=== PATIENT | male | born 1980 | race Caucasian/White ===

== ENCOUNTER 2022-12-05 06:06 | Inpatient (IN) ==
[2022-11-28 12:31] LABS: Basophils % 0.7 % (0.0-0.8); Eosinophils # 0.2 10*3/uL (0.0-0.87); Eosinophils % 3.7 % (0.00-10.9); Hematocrit 39.7 VOL% (42.0-52.0); Hemoglobin 13.7 GM/DL (14.0-18.0); Immature Granulocytes % 0.4 %; Immature Granulocytes Absolute 0.02 #; Lymphocytes # 0.4 10*3/uL (1.4-4.0); Lymphocytes % 9.1 % (21.2-54.2); Mean Corpuscular HGB Conc 34.5 GM/DL (32-36); Mean Corpuscular Volume 91.3 FL (87-102); Mean Platelet Volume 12.5 FL (9.6-12.0); Monocytes # 0.4 10*3/uL (0.11-0.8); Monocytes % 8.5 % (1.7-12.7); Neutrophils % 77.6 % (38.7-73.9); Platelet Count 183 T/CUMM (130-400); Red Blood Count 4.35 MC/CUMM (3.8-5.5); Red Cell Distribution Width 13.7 % (9.3-17.3); White Blood Count 4.6 T/CUMM (4-12)
[2022-11-28 12:41] LABS: Calcium 9.1 MG/DL (8.5-10.1); Osmolality,Calculated 279.3 MOS/KG (273-304); Potassium 4.1 MMOL/L (3.5-5.1)
[~2022-12-05 06:06] MED LIST: LACTATED RINGERS 1,000 ML IV SCH
[2022-12-05] MEDS ORDERED: INDOCYANINE GREEN 25 MG VIAL IV ONE (06:11)
[2022-12-05] MEDS ORDERED: TISSUE ADHESIVE 1 EACH APPLICATOR TOP ONE (06:11)
[2022-12-05] MEDS ORDERED: buprenorphine HCL 0.3 MG/ML VIAL ONE (06:27)
[2022-12-05] MEDS ORDERED: ACETAMINOPHEN 500 MG TABLET PO ONE (06:29)
[2022-12-05] MEDS ORDERED: GABAPENTIN 400 MG CAPSULE PO ONE (06:29)
[2022-12-05] MEDS ORDERED: DIAZEPAM 5 MG TABLET PO ONE (06:29)
[2022-12-05] MEDS ORDERED: FAMOTIDINE 20 MG TABLET PO ONE (06:29)
[2022-12-05] MEDS ORDERED: ERTAPENEM 1,000 MG in SODIUM CHLORIDE 0.9% 100 ML IV ONE (06:30)
[2022-12-05] MEDS ORDERED: ALVIMOPAN 12 MG CAPSULE PO ONE (06:30)
[2022-12-05] MEDS ORDERED: ACETAMINOPHEN 500 MG TABLET ONE (06:31)
[2022-12-05] MEDS ORDERED: DIAZEPAM 5 MG TABLET ONE (06:31)
[2022-12-05] MEDS ORDERED: GABAPENTIN 400 MG CAPSULE ONE (06:31)
[2022-12-05] MEDS ORDERED: MIDAZOLAM 2 MG/2 ML VIAL ONE (06:33)
[2022-12-05] MEDS ORDERED: fentaNYL 250 MCG/5 ML VIAL ONE (06:33)
[2022-12-05] MEDS ORDERED: SUCCINYLCHOLINE 200 MG/10 ML VIAL ONE (06:35)
[2022-12-05] MEDS ORDERED: propofoL 200 MG/20 ML VIAL IV ONE (06:35)
[2022-12-05] MEDS ORDERED: LIDOCAINE 2% 5 ML VIAL ONE (06:35)
[2022-12-05] MEDS ORDERED: ONDANSETRON 4 MG/2 ML VIAL ONE (06:35)
[2022-12-05] MEDS ORDERED: DEXAMETHASONE 4 MG/1 ML VIAL ONE (06:35)
[2022-12-05] MEDS ORDERED: ROCURONIUM 50 MG/5 ML VIAL IV ONE ×3 (06:35→11:15)
[2022-12-05] MEDS ORDERED: LACTATED RINGERS 1,000 ML IV ONE ×3 (07:35→10:47)
[2022-12-05] MEDS ORDERED: fentaNYL 100 MCG/2 ML VIAL ONE (08:47)
[2022-12-05] MEDS ORDERED: NEOSTIGMINE 10 MG/10 ML VIAL ONE (10:09)
[2022-12-05] MEDS ORDERED: GLYCOPYRROLATE 0.4 MG/2 ML VIAL ONE (10:09)
[2022-12-05] MEDS ORDERED: DESFLURANE 1 UNIT/15 MINUTE INH ONE (11:39)
[2022-12-05 12:19] LABS: Bacteria,Urine Occasional /HPF (Few); Mucus,Urine Occasional /LPF (Occasional); RBC,Urine <1 /HPF (0-4)
[2022-12-05 12:20] LABS: Bilirubin,Urine Negative (Negative); Glucose,Urine (UA) Negative (Negative); Ketones,Urine Negative (Negative); Nitrite,Urine Negative (Negative); Protein,Urine Negative (Negative); Urine Appearance Clear (Clear); Urine Color Yellow (Yellow); Urine Specific Gravity 1.015 (1.001-1.035); Urine pH 5.5 (4.5-8.0)
[2022-12-05 12:21] LABS: Blood, Urine Negative (Negative); Urine Urobilinogen 0.2 eU/dL (<2.0)
[2022-12-05] MEDS ORDERED: HYDROmorphone 1 MG/1 ML SYRINGE ONE (12:36)
[2022-12-05] MEDS: HYDROmorphone 1 MG/1 ML SYRINGE IV PRN ×2 (12:38→12:44)
[2022-12-05] MEDS ORDERED: MEPERIDINE 25 MG/1 ML VIAL ONE (12:55)
[2022-12-05] MEDS ORDERED: ACETAMINOPHEN INJ 1,000 MG/100 ML VIAL IV ONE ×2 (12:55→12:59)
[2022-12-05] MEDS ORDERED: KETOROLAC 30 MG/1 ML VIAL ONE (12:55)
[2022-12-05] MEDS ORDERED: MEPERIDINE 25 MG/1 ML VIAL IV ONE (12:58)
[2022-12-05] MEDS ORDERED: KETOROLAC 30 MG/1 ML VIAL IV ONE (13:00)
[2022-12-05] MEDS ORDERED: ONDANSETRON 4 MG/2 ML VIAL IV PRN (13:40)
[2022-12-05] MEDS ORDERED: KETOROLAC 30 MG/1 ML VIAL IV SCH (13:40)
[2022-12-05] MEDS: LACTATED RINGERS 1,000 ML IV SCH (14:17)
[2022-12-05 15:13] LABS: Basophils % 0.1 % (0.0-0.8); Hematocrit 38.5 VOL% (42.0-52.0); Hemoglobin 13.4 GM/DL (14.0-18.0); Immature Granulocytes % 0.7 %; Lymphocytes # 0.3 10*3/uL (1.4-4.0); Lymphocytes % 2.1 % (21.2-54.2); Mean Corpuscular HGB Conc 34.8 GM/DL (32-36); Mean Corpuscular Volume 91.4 FL (87-102); Mean Platelet Volume 12.2 FL (9.6-12.0); Monocytes # 0.5 10*3/uL (0.11-0.8); Monocytes % 3.3 % (1.7-12.7); Neutrophils % 93.8 % (38.7-73.9); Platelet Count 149 T/CUMM (130-400); Red Blood Count 4.21 MC/CUMM (3.8-5.5); Red Cell Distribution Width 13.2 % (9.3-17.3)
[2022-12-05 15:27] LABS: Calcium 8.3 MG/DL (8.5-10.1); Osmolality,Calculated 280.5 MOS/KG (273-304); Potassium 4.2 MMOL/L (3.5-5.1)
[2022-12-05 15:38] LABS: Lymphocytes 1 % (20-55)
[2022-12-05 15:39] LABS: Platelet Estimate Adequate; Total Cells Counted 100
[2022-12-05] MEDS: KETOROLAC 30 MG/1 ML VIAL IV SCH (17:53)
[2022-12-05] MEDS ORDERED: ACETAMINOPHEN 500 MG TABLET PO PRN (18:00)
[2022-12-05] MEDS: ALVIMOPAN 12 MG CAPSULE PO SCH (22:28)
[2022-12-06 05:31] LABS: Basophils % 0.1 % (0.0-0.8); Hematocrit 35.4 VOL% (42.0-52.0); Hemoglobin 12.1 GM/DL (14.0-18.0); Immature Granulocytes % 0.3 %; Immature Granulocytes Absolute 0.03 #; Lymphocytes # 0.4 10*3/uL (1.4-4.0); Lymphocytes % 4.3 % (21.2-54.2); Mean Corpuscular HGB Conc 34.2 GM/DL (32-36); Mean Corpuscular Volume 91.5 FL (87-102); Mean Platelet Volume 12.2 FL (9.6-12.0); Monocytes # 0.7 10*3/uL (0.11-0.8); Monocytes % 7.3 % (1.7-12.7); Platelet Count 152 T/CUMM (130-400); Red Blood Count 3.87 MC/CUMM (3.8-5.5); Red Cell Distribution Width 13.2 % (9.3-17.3); White Blood Count 9.8 T/CUMM (4-12)
[2022-12-06] MEDS: KETOROLAC 30 MG/1 ML VIAL IV SCH ×5 (05:54→23:26)
[2022-12-06 05:55] LABS: Band Neutrophils 1 % (0-10); Lymphocytes 2 % (20-55); Total Cells Counted 100
[2022-12-06 05:56] LABS: Microcytosis 1+; Ovalocytes Few
[2022-12-06 05:57] LABS: Platelet Estimate Adequate
[2022-12-06 06:03] LABS: Calcium 8.7 MG/DL (8.5-10.1); Osmolality,Calculated 278.3 MOS/KG (273-304); Potassium 4.2 MMOL/L (3.5-5.1)
[2022-12-06] MEDS: ALVIMOPAN 12 MG CAPSULE PO SCH ×2 (08:37→20:49)
[2022-12-06] MEDS: ENOXAPARIN 40 MG/0.4 ML SYRINGE SUBCUT SCH (08:37)
[2022-12-06] MEDS: HYDROmorphone 1 MG/1 ML SYRINGE IV PRN ×2 (08:38→13:56)
[2022-12-06] MEDS: LACTATED RINGERS 1,000 ML IV SCH (10:12)
[2022-12-06] MEDS: TAMSULOSIN 0.4 MG CAPSULE PO SCH ×2 (15:08→20:49)
[2022-12-06] MEDS: traZODone 50 MG TABLET PO SCH (20:49)
[2022-12-07] MEDS: KETOROLAC 30 MG/1 ML VIAL IV SCH ×4 (05:45→23:17)
[2022-12-07] MEDS: ENOXAPARIN 40 MG/0.4 ML SYRINGE SUBCUT SCH (08:45)
[2022-12-07] MEDS: ALVIMOPAN 12 MG CAPSULE PO SCH ×2 (08:45→20:34)
[2022-12-07] MEDS: TAMSULOSIN 0.4 MG CAPSULE PO SCH ×2 (08:45→20:34)
[2022-12-07] MEDS: DEXT 5% NACL 0.45% KCL 40 MEQ 40 MEQ/1,000 ML BAG IV SCH ×2 (15:30→20:34)
[2022-12-07 15:44] LABS: Basophils % 0.5 % (0.0-0.8); Eosinophils # 0.2 10*3/uL (0.0-0.87); Eosinophils % 2.8 % (0.00-10.9); Hematocrit 38.1 VOL% (42.0-52.0); Hemoglobin 13.1 GM/DL (14.0-18.0); Immature Granulocytes % 0.5 %; Immature Granulocytes Absolute 0.04 #; Lymphocytes # 0.6 10*3/uL (1.4-4.0); Lymphocytes % 6.8 % (21.2-54.2); Mean Corpuscular HGB Conc 34.4 GM/DL (32-36); Mean Corpuscular Volume 90.9 FL (87-102); Mean Platelet Volume 12.1 FL (9.6-12.0); Monocytes # 0.6 10*3/uL (0.11-0.8); Monocytes % 7.3 % (1.7-12.7); Neutrophils % 82.1 % (38.7-73.9); Platelet Count 177 T/CUMM (130-400); Red Blood Count 4.19 MC/CUMM (3.8-5.5); Red Cell Distribution Width 13.2 % (9.3-17.3); White Blood Count 8.6 T/CUMM (4-12)
[2022-12-07 16:21] LABS: Albumin 3.2 G/DL (3.4-5.0); Bilirubin,Total 0.8 MG/DL (0.20-1.00); Calcium 9.1 MG/DL (8.5-10.1); Osmolality,Calculated 274.5 MOS/KG (273-304); Potassium 3.4 MMOL/L (3.5-5.1); Total Protein 7.4 G/DL (6.4-8.2)
[2022-12-07] MEDS: traZODone 50 MG TABLET PO SCH (20:34)
[2022-12-08] MEDS: DEXT 5% NACL 0.45% KCL 40 MEQ 40 MEQ/1,000 ML BAG IV SCH (05:07)
[2022-12-08] MEDS: KETOROLAC 30 MG/1 ML VIAL IV SCH (05:09)
[2022-12-08] MEDS: ENOXAPARIN 40 MG/0.4 ML SYRINGE SUBCUT SCH (09:40)
[2022-12-08] MEDS: ALVIMOPAN 12 MG CAPSULE PO SCH ×2 (09:40→20:55)
[2022-12-08] MEDS: TAMSULOSIN 0.4 MG CAPSULE PO SCH ×2 (09:40→20:55)
[2022-12-08] MEDS: KETOROLAC 10 MG TABLET PO SCH ×3 (12:02→23:32)
[2022-12-08] MEDS: oxyCODONE/ACETAMINOPHEN 5-325 MG TABLET PO PRN ×3 (12:03→20:57)
[2022-12-08] MEDS ORDERED: ALUMINUM/MAGNES/SIMETH MAX STR 30 ML UDCUP PO PRN (19:14)
[2022-12-08] MEDS: traZODone 50 MG TABLET PO SCH (20:55)
[2022-12-09] MEDS: oxyCODONE/ACETAMINOPHEN 5-325 MG TABLET PO PRN ×3 (01:01→13:54)
[2022-12-09] MEDS: KETOROLAC 10 MG TABLET PO SCH ×2 (06:32→12:32)
[2022-12-09] MEDS: ALVIMOPAN 12 MG CAPSULE PO SCH (08:30)
[2022-12-09] MEDS: TAMSULOSIN 0.4 MG CAPSULE PO SCH (08:30)
[2022-12-09 12:09] VITALS: BP 118/80
[2022-12-09] MEDS: ENOXAPARIN 40 MG/0.4 ML SYRINGE SUBCUT SCH (12:32)
== END 2022-12-09 14:55 | disposition home or self-care (01) | DRG 330 ==
LOC: N.OR 06:06 → N.SDSINP 06:06 → N.3E 11:56
PROVIDERS: ADMIT Surgery; ATTEND Surgery